=== PATIENT | male | born 1960 | race Caucasian/White ===

== ENCOUNTER 2023-11-10 00:27 | Day surgery (SDC) | payer OTHER, SELFPAY ==
[2023-11-06 10:23] VITALS: BMI 37.2
--- NOTE | 2023-11-06 10:35 | PC.NURSE ---
Report to the Outpatient Waiting Room, entrance under the green pavilion located off [facility], at time 6:00 on date 11/10/23. Planned Procedure Time: 7:30. Time changes happen often and if your time is changed the preop area will call you the afternoon before. - You and your visitor will be asked to self-screen and do not enter if you have any COVID symptoms. - A mask is optional within the hospital at this time. Patients may have clear liquids (water, carbonated beverages, clear teas, apple juice) until 3 hours prior to surgery (4:30) with a maximum of 20 ounces. - No food from midnight until time of surgery Take the following medications with a SIP of water the morning of surgery: GABAPENTIN DO NOT STOP ANY OF YOUR OTHER PRESCRIPTION MEDICATIONS PRIOR TO SURGERY ?EXCEPT THE FOLLOWING Medications to discontinue per physician: NAPROXEN Date to take last dose: CHECK WITH DR. ANTONIO Please no make-up, nail lao, hairspray, perfume, deodorant, or body powder the day of surgery. No jewelry (including any body piercings) or valuables the day of surgery, leave them at home. Please take a shower or bath the night before, or the morning of, surgery with an antibacterial soap. Wear comfortable, loose fitting clothing. - Jewelry must be removed prior to entering the operating room. Rings and piercings that are not removed may be cut off. - The hospital will not accept responsibility for valuables. - Please leave all valuables, including medications, at home the day of surgery. If you are going home after surgery, a licensed ups driver must drive you home. - NO public transportation without another adult if you receive anesthesia. - We recommend that an adult stay with you for 24 hours following discharge. - We also recommend that you do not drive, make important decision, drink alcoholic beverages, or take any drugs that were not prescribed by your health care provider for at least 24 hours after your discharge time. Follow any additional instructions given to you from your surgeon. If you or anyone in your household have experienced Covid symptoms in the past week, please notify your surgeon or the nurse liaison at the phone number below for possible testing. Telephone instructions given to PT - TERI VALENTIN and asked if any additional questions and then verbalized understanding. Patient advised to call surgeon office or pre surgery nurse liaison [phone] if any additional questions.
[2023-11-10] VITALS (9 sets, daily range): BP systolic 129–155; BP diastolic 74–85; PULSE 54–65; RESP 13–22; TEMP 36.3–36.5; O2SAT 96–100
--- NOTE | 2023-11-10 07:18 | P.PNAN_ITS ---
Anes - Initial Pre Proc Eval Procedure: Operation Date: 11/10/23 08:15 Proposed Procedures p Septoplasty - Jean Clement MD s Bilateral Turbinate Reduction - Jean Clement MD Date/Time: 11/10/23 07:18 Surgeon: Jean Clement MD Pre Op Diagnosis: deviated septum,turbinate hypertrophy Patient Data Age: 63 Gender: M Height: 1.88 m Weight: 131.55 kg Allergies Allergy/AdvReac Type Severity Reaction Status Date / Time Penicillins Allergy Unknown Verified 11/06/23 10:23 Home Medications Medication Instructions Recorded Confirmed Type atorvastatin 40 mg tablet 40 mg PO DAILY 11/06/23 11/06/23 History cetirizine 10 mg tablet 10 mg PO DAILY 11/06/23 11/06/23 History gabapentin 300 mg capsule 300 mg PO TID 11/06/23 11/06/23 History lisinopril 10 1 tablet PO DAILY 11/06/23 11/06/23 History mg-hydrochlorothiazide 12.5 mg tablet naproxen 500 mg tablet 500 mg PO BID 11/06/23 11/06/23 History omeprazole 40 mg capsule,delayed 40 mg PO DAILY 11/06/23 11/06/23 History release sulfasalazine 500 mg 1 g PO BID 11/06/23 11/06/23 History tablet,delayed release tadalafil 5 mg tablet 5 mg PO DAILY 11/06/23 11/06/23 History Patient hx anesthesia problems: none Family hx anesthesia problems: none Results Review: All pre-operative results and documents have been reviewed as part of the pre- operative evaluation. [facility] Past Medical History Medical History (Updated 11/10/23 @ 07:19 by Martin Victor MD) Obesity TALISHA (obstructive sleep apnea) SLE (systemic lupus erythematosus) Surgical History Surgical History (Updated 11/10/23 @ 07:19 by Martin Victor MD) History of total knee arthroplasty Social History Social History Smoking status: Never smoker Alcohol intake: current Drinks per week: 20 Alcohol use details: BEER Substance use: never Substance use type: does not use Living arrangements: with family Spiritual care concerns: No Anes - Eval Final PreProcedure Day of Procedure 11/10/23 07:18 Patient weight: obese Heart: regular rate and rhythm Lungs: clear to auscultation Airway: Mallampati scale class II Neurological: alert and oriented Last oral intake: >/= 8 hours ASA classification: III Emergent: no Anesthetic plan: proceed Anesthesia type and monitoring: general ETT Results Review: All pre-operative results and documents have been reviewed as part of the pre- operative evaluation. Informed Consent: The patient's anesthetic plan and its attendant risks and benefits were discussed with the patient/family/POA. Questions were solicited and answers provided to the satisfaction of the patient/family/POA.
--- NOTE | 2023-11-10 07:34 | ECG_ITS ---
Measurements Intervals [place] Rate: 59 P: 15 DE: 173 QRS: -24 QRSD: 118 T: 31 QT: 386 QTc: 383 Interpretive Statements SINUS BRADYCARDIA SEPTAL MYOCARDIAL INFARCTION , OF INDETERMINATE AGE [40+ ms Q WAVE IN V1/V2] ABNORMAL ECG NO PREVIOUS ECG AVAILABLE FOR COMPARISON Electronically Signed On 11-10-2023 17:13:14 SHIRRER by Nicolas Cook M.D.
[2023-11-10] MEDS: ACETAMINOPHEN 500 MG TABLET 1000 MG PO (07:36)
[2023-11-10] MEDS: LACTATED RINGERS 1,000 ML 30 ML IV CONT (07:40)
--- NOTE | 2023-11-10 07:45 | PM.IMHP ---
H&P: HPI History of Present Illness Date/Time: 11/10/23 07:45 Chief Complaint: nasal dyspnea Narrative: nasal dyspnea Review of Systems Review of Systems: All systems reviewed & are unremarkable except as noted in HPI and below PMFSH Past Medical History Medical History Obesity TALISHA (obstructive sleep apnea) SLE (systemic lupus erythematosus) Surgical History Surgical History History of total knee arthroplasty Social History Social History Smoking status: Never smoker Alcohol intake: current Drinks per week: 20 Alcohol use details: BEER Substance use: never Substance use type: does not use Living arrangements: with family Spiritual care concerns: No Meds Home Medications and Allergies Home Medications Medication Instructions Recorded Confirmed Type atorvastatin 40 mg tablet 40 mg PO DAILY 11/06/23 11/10/23 History cetirizine 10 mg tablet 10 mg PO DAILY 11/06/23 11/10/23 History gabapentin 300 mg capsule 300 mg PO TID 11/06/23 11/10/23 History lisinopril 10 1 tablet PO DAILY 11/06/23 11/10/23 History mg-hydrochlorothiazide 12.5 mg tablet naproxen 500 mg tablet 500 mg PO BID 11/06/23 11/10/23 History omeprazole 40 mg capsule,delayed 40 mg PO DAILY 11/06/23 11/10/23 History release sulfasalazine 500 mg 1 g PO BID 11/06/23 11/10/23 History tablet,delayed release tadalafil 5 mg tablet 5 mg PO DAILY 11/06/23 11/06/23 History Allergies Allergy/AdvReac Type Severity Reaction Status Date / Time Penicillins Allergy Unknown Verified 11/10/23 07:33 Exam Narrative: nasal obstruction, septal deviation and turbinate hypertrophy, rest of exam wnl Assessment and Plan Assessment and plan (1) Deviated nasal septum: Code(s): J34.2 - Deviated nasal septum Status: Acute Plan Chase is here for septoplasty and turbinoplasty for chronic nasal dyspnea non responsive to medical management. r/b/a reviewed, pt understands and agrees to proceed, refer to outpt H&P for full details.
--- NOTE | 2023-11-10 07:48 | WPDHPUPDATE1 ---
History and Physical Update Update Date/Time: 11/10/23 07:48 History and Physical has been reviewed, including an updated exam of the patient. There are NO changes in the patient's condition. Risks, benefits, and alternatives have been discussed and questions answered. Patient agrees to proceed with procedure.
[2023-11-10] MEDS: OXYMETAZOLINE HCL 0.05% NAS 15 ML BTL (*BKC) 1 SPRAY NASAL (08:00)
[2023-11-10 08:06] LABS: Anion Gap 6 mmol/L (8-16); Blood Urea Nitrogen 16 mg/dL (9-20); Calcium 9.4 mg/dL (8.4-10.2); Carbon Dioxide 27 mmol/L (22-30); Chloride 105 mmol/L (98-107); Estimated CRCL calculation 154 ml/min; Estimated Glomerular Filt Rate > 60; Glucose 104 mg/dL (65-110); Potassium 4.6 mmol/L (3.4-5.0); Sodium 138 mmol/L (137-145)
[2023-11-10] MEDS: ceFAZolin 3 GM/D5W 100 ML 100 ML IVPB (08:23)
[2023-11-10] MEDS: LIDO 1%/EPINEPHRINE 1:100,000 50 ML VIAL INFILTRATE (08:33)
[2023-11-10] MEDS: MUPIROCIN 2% OINT 22 GM TUBE 1 APPLIC EACH NARE (09:22)
--- NOTE | 2023-11-10 09:35 | P.OP_ITS ---
Procedure Note - Detailed Date of Procedure 11/10/23 Pre-op Diagnosis deviated septum,turbinate hypertrophy Post-op Diagnosis Same Procedure Performed Septoplasty and bilateral turbinoplasty Surgeon Jean Clement MD Anesthesia General Indications Nasal dyspnea Findings Broad left septal deviation, significant right septal swell body with small polyp formation along septum and lateral nasal wall superiorly on the right. Bilateral chadwick splints placed. Description of Procedure After obtaining informed consent and proper site verification the patient was brought to the operating room and placed on the operating table in the supine position. They were placed under general endotracheal anesthesia by the anesthesia provider. The patient was then draped in standard fashion for septoplasty and turbinoplasty. A timeout was performed and the correct patient and procedure were verified. The nasal cavity was injected with 1% lidocaine with 1-100,000 epinephrine and packed with afrin-soaked cottonoid pledgets. ? Attention was then directed to the nasal septum. A hemitransfixion incision was made in the left caudal septum and a mucoperichondrial flap was elevated in the usual fashion. The flap was elevated under endoscopic visualization and the remainder of the case was performed with endoscopic assistance. Using a D- knife, an incision was made through the cartilaginous septum with care to preserve the appropriate caudal and dorsal ?L-strut? of cartilage. The cartilage was then disarticulated from the bony-cartilaginous junction and the deviated cartilage was removed. Further deviated bone and cartilage was removed from the maxillary crest and posterior bony septum with care to avoid injury to the mucoperichondrial flap using a combination of dissection and Jose L- Schneider forceps. Once this was completed, the hemitransfixion incision was closed using simple interrupted 4-0 chromic suture. A quilting stitch to reapproximate the mucoperichondrial flaps was then placed using 4-0 plain gut suture on a Martinez needle. ? Next attention was directed to the turbinates. Using a 0? telescope and 2mm turbinate blade microdebrider, a stab incision was made in the anterior face of the turbinate and dissection was carried posterior to perform submucosal resection. Next the turbinate was outfractured using a blunt instrument. The polypoid tissue of the right superior lateral nasal wall and septal swell was reduced with microdebrider. A similar procedure was then performed on the right-hand side without difficulty. Chadwick splints covered in mupirocin ointment were placed in the nasal cavity and secured to the membranous septum using a 3-0 Prolene suture. ?The patient was awakened from general anesthesia extubated in the operating room, and transported to the recovery room in stable condition without complication. Estimated Blood Loss 30 Drains No Packing Yes (chadwick splints) Pathology None sent Complications No immediate complications Condition Stable Disposition PACU
[2023-11-10] MEDS: oxyCODONE HCL (*CRX) 5 MG TAB IR PO (11:18)
--- NOTE | 2023-11-10 11:18 | SUR.PHASEII ---
1119 - One squirt of Affrin applied to each nostril per MD Clement.
== END 2023-11-10 11:47 | disposition home or self-care (01) ==
PROVIDERS: Anesthesiology; Visit Provider Otolaryngology
PROC: (CPT 30520; principal; 2023-11-10 08:15)
PROC: (CPT 30520; 2023-11-10 08:15)
DX: J34.2 Deviated nasal septum (principal); J34.3 Hypertrophy of nasal turbinates; J33.0 Polyp of nasal cavity; G47.33 Obstructive sleep apnea (adult) (pediatric); L93.0 Discoid lupus erythematosus; E66.9 Obesity, unspecified; Z68.35 Body mass index [BMI] 35.0-35.9, adult
CPT/HCPCS: 30520; 30140; 36415; 80048; 93005; A9270; J0330; J0690; J1100; J2250; J2405; J2704; J3010; J7120